=== PATIENT | male | born 1955 | race Two or more races ===

== ENCOUNTER 2024-01-15 21:49 | Inpatient (IN) | payer MEDICARE, OTHER ==
[~2024-01-15] VITALS: Ht 182.9 cm; Wt 103.9 kg
[2024-01-15] MEDS: FENTANYL 2500MCG/250ML PMX 250 ML IV ONE (01:30)
[2024-01-16] VITALS (81 sets, daily range): BP systolic 65–159; BP diastolic 45–81; PULSE 15–130; RESP 14–22; TEMP 37.55856–38.4752; O2SAT 97–100
[2024-01-16 00:51] LABS: HEMATOCRIT. 48.8 % (42.0-52.0); HEMOGLOBIN. 15.6 g/dL (14.0-18.0); MEAN CORPUSCULAR HEMOGLOBIN 29.5 pg (28.0-32.0); MEAN CORPUSCULAR VOLUME 92.2 fL (80.0-94.0); RED CELL DISTRIBUTION WIDTH 15.9 % (11.6-14.6); WHITE BLOOD COUNT 15.2 x1000/uL (4.5-11.0)
[2024-01-16 00:56] LABS: DIFFERENTIAL COMMENT 1
[2024-01-16] MEDS ORDERED: NOREPINEPHRINE 8MG/250ML PMX 250 ML IV ONE (01:00)
[2024-01-16 01:02] LABS: CHLORIDE 108 mEq/L (98-107); POTASSIUM 5.3 mEq/L (3.5-5.1); SODIUM 144 mEq/L (136-145)
[2024-01-16 01:03] LABS: CALCIUM 9.2 mg/dL (8.7-10.4); CARBON DIOXIDE 26 mEq/L (21-32)
[2024-01-16 01:08] LABS: CREATININE 1.2 mg/dL (0.6-1.3); GLUCOSE 119 mg/dL (70-105); UREA NITROGEN BLOOD 26 mg/dL (9-23)
[2024-01-16 01:10] LABS: ALANINE AMINOTRANSFERASE 36 IU/L (10-49); ALBUMIN 4.1 g/dL (3.2-4.8); ASPARTATE AMINOTRANSFERASE 38 IU/L (<34); BILIRUBIN DIRECT 0.3 mg/dL (<=3.0); BILIRUBIN TOTAL 0.9 mg/dL (0.1-1.0); TROPONIN I HIGH SENSITIVITY 8 ng/L (3.0-53)
[2024-01-16] MEDS ORDERED: FENTANYL 2500MCG/250ML PMX 250 ML IV ONE (01:30)
[2024-01-16] MEDS ORDERED: FENTANYL 2500MCG/250ML PMX 250 ML IV PRN (01:30)
[2024-01-16] MEDS ORDERED: AZITHROMYCIN 500MG/250ML 250 ML IV NR (01:45)
[2024-01-16] MEDS ORDERED: VANCOMYCIN 1G PREMIX 200 ML IV NR (01:45)
[2024-01-16] MEDS ORDERED: PIPERACILLIN/TAZO 3.375G/50ML 50 ML IV NR (01:45)
[2024-01-16] MEDS ORDERED: SODIUM CHLORIDE 0.9% (SEPSIS BOLUS) IV NR (01:45)
[2024-01-16 01:50] LABS: INR 1.2; PROTHROMBIN TIME 12.8 sec (9.6-11.0)
[2024-01-16 03:24] LABS: CHLORIDE 109 mEq/L (98-107); SODIUM 143 mEq/L (136-145)
[2024-01-16 03:25] LABS: CALCIUM 8.7 mg/dL (8.7-10.4); CARBON DIOXIDE 26 mEq/L (21-32)
[2024-01-16 03:30] LABS: CREATININE 1.2 mg/dL (0.6-1.3); GLUCOSE 113 mg/dL (70-105); UREA NITROGEN BLOOD 29 mg/dL (9-23)
[2024-01-16 03:36] LABS: CLARITY URINE CLEAR (CLEAR); COLOR URINE DARK YELLOW (YELLOW); GLUCOSE URINE NEGATIVE (NEGATIVE); KETONES URINE TRACE (NEGATIVE); LEUKOCYTE ESTERASE URINE NEGATIVE (NEGATIVE); NITRITE URINE NEGATIVE (NEGATIVE); OCCULT BLOOD URINE NEGATIVE (NEGATIVE); PROTEIN URINE 1+ (NEGATIVE); SPECIFIC GRAVITY URINE 1.024 (1.005-1.030)
[2024-01-16] MEDS ORDERED: CLONIDINE 0.1MG TABLET NG PRN (04:00)
[2024-01-16] MEDS ORDERED: ONDANSETRON HCL 4MG/2ML INJ IV PRN (04:00)
[2024-01-16] MEDS: ACETAMINOPHEN 650MG/20.3ML UDC GT PRN (04:35)
[2024-01-16] MEDS ORDERED: NOREPINEPHRINE 8MG/250ML PMX 250 ML IV PRN (04:50)
[2024-01-16 05:45] LABS: RBC URINE 0-2 /hpf (0-2)
[2024-01-16 05:46] LABS: BACTERIA URINE NONE SEEN; SQUAMOUS EPITHELIAL CELL URINE NONE SEEN /lpf (RARE/1+)
[2024-01-16] MEDS: NOREPINEPHRINE 32 MG in DEXT 5% WATER 218 ML IV PRN (06:56)
[2024-01-16] MEDS: DEXT 5%/0.45% NACL 1000ML 1,000 ML IV SCH (06:57)
[2024-01-16] MEDS: IPRATROPIUM/ALBUTEROL 0.5-3(2.5)MG/3ML NEB HHN SCH (08:24)
[2024-01-16 08:35] LABS: PLATELET ESTIMATE NORMAL
[2024-01-16 08:36] LABS: PLATELET 178 x1000/uL (130-400)
[2024-01-16 08:55] LABS: BG BASE EXCESS -3.3 mmol/L (-2.0-3.0); BG CARBOXYHEMOGLOBIN 0.3 % (0.5-1.5); BG DEOXYHEMOGLOBIN 2.8 % (0.0-5.0); BG FRACTION INSPIRED OXYGEN 100; BG HCO3 ACT 23.1 mmol/L (21.0-28.0); BG METHEMOGLOBIN 0.1 % (0.5-1.5); BG OXYGEN SATURATION 97.2 % (94.0-98.0); BG OXYHEMOGLOBIN 96.8 % (94.0-98.0); BG PCO2 46.3 mmHg (35.0-48.0); BG PH 7.316 (7.350-7.450); BG PO2 84.6 mmHg (83.0-108.0); BG SAMPLE SITE RIGHT RADIAL; BG TOTAL HEMOGLOBIN 16.6 g/dL (13.5-17.5); BG VENT MODE VENT - AC
[2024-01-16] MEDS: LEVETIRACETAM 500MG PREMIX 100 ML IV SCH (08:58)
[2024-01-16] MEDS: FAMOTIDINE 20MG/2ML VIAL IV SCH (08:58)
[2024-01-16] MEDS ORDERED: LEVETIRACETAM 500MG in NACL 100ML PREMIX IV SCH (09:00)
[2024-01-16] MEDS ORDERED: PHENYLEPHRINE 50MG/250ML PMX 250 ML IV PRN (11:30)
[2024-01-16] MEDS ORDERED: PROPOFOL 10MG/ML 100ML 100 ML IV PRN (12:00)
[2024-01-16] MEDS ORDERED: DEXTROSE 50% WATER 50ML SYRINGE IV PRN (12:15)
[2024-01-16] MEDS: PANTOPRAZOLE SODIUM 40 MG/VIAL IV SCH (12:24)
[2024-01-16] MEDS: SODIUM ZIRCONIUM CYCLOSILICATE 10GM/PACKET NG NR (12:24)
[2024-01-16] MEDS: FENTANYL CITRATE/PF 2,500 MCG in SODIUM CHLORIDE 0.9% 200 ML IV PRN (12:25)
[2024-01-16] MEDS: BLOOD SUGAR DIAGNOSTIC STRIP TEST SCH (12:50)
[2024-01-16] MEDS: INSULIN LISPRO 100 UNITS/ML SUBCUT SCH (13:20)
[2024-01-16 13:53] LABS: POTASSIUM 4.3 mEq/L (3.5-5.1)
[2024-01-16 13:54] LABS: CALCIUM 8.5 mg/dL (8.7-10.4)
[2024-01-16 13:59] LABS: CREATININE 1.3 mg/dL (0.6-1.3); HEMATOCRIT. 48.9 % (42.0-52.0); HEMOGLOBIN. 15.4 g/dL (14.0-18.0); MEAN CORPUSCULAR HEMOGLOBIN 29.6 pg (28.0-32.0); MEAN CORPUSCULAR HGB CONC 31.5 g/dL (31.0-37.0); MEAN CORPUSCULAR VOLUME 94.2 fL (80.0-94.0); MEAN PLATELET VOLUME 10.2 fl (7.4-10.4); PLATELET 196 x1000/uL (130-400); RED BLOOD CELL COUNT 5.18 mill/uL (4.7-6.1); WHITE BLOOD COUNT 14.8 x1000/uL (4.5-11.0)
[2024-01-16 14:05] LABS: DIFFERENTIAL COMMENT 1
[2024-01-16 14:08] LABS: LACTIC ACID 5.7 mmol/L (0.4-2.0)
[2024-01-16] MEDS: ACETYLCYSTEINE 200MG/ML 20% VIAL 4ML INH SCH (14:18)
[2024-01-16] MEDS: PHENYLEPHRINE 50 MG in DEXTROSE 5% WATER 250 ML IV PRN (14:25)
[2024-01-16] MEDS: AZITHROMYCIN 500MG/250ML 250 ML IV SCH (14:26)
[2024-01-16] MEDS: HYDROCORTISONE SOD SUCCINATE 100 MG/2 ML VIAL IV SCH (14:26)
[2024-01-16 15:28] LABS: PLATELET ESTIMATE NORMAL
[2024-01-16] MEDS: CEFEPIME 1GM/50ML 50 ML IV SCH (15:41)
[2024-01-16] MEDS: METRONIDAZOLE 500 MG PREMIX 100 ML IV SCH (15:42)
[2024-01-16] MEDS: PHENYLEPHRINE 100 MG in DEXT 5% WATER 240 ML IV PRN (21:28)
[2024-01-17] VITALS (104 sets, daily range): BP systolic 86–148; BP diastolic 45–121; PULSE 56–88; RESP 16–19; TEMP 37.00296–37.66968; O2SAT 88–100
[2024-01-17] MEDS: ENOXAPARIN 40MG/0.4ML SYR SUBCUT SCH (08:14)
[2024-01-17 08:59] LABS: CALCIUM 8.1 mg/dL (8.7-10.4); CARBON DIOXIDE 29 mEq/L (21-32); CHLORIDE 107 mEq/L (98-107); POTASSIUM 4.1 mEq/L (3.5-5.1); SODIUM 142 mEq/L (136-145)
[2024-01-17 09:04] LABS: CREATININE 0.9 mg/dL (0.6-1.3); GLUCOSE 117 mg/dL (70-105)
[2024-01-17 09:05] LABS: UREA NITROGEN BLOOD 28 mg/dL (9-23)
[2024-01-17 09:08] LABS: HEMATOCRIT. 44.1 % (42.0-52.0); HEMOGLOBIN. 14.1 g/dL (14.0-18.0); MEAN CORPUSCULAR HEMOGLOBIN 29.6 pg (28.0-32.0); MEAN CORPUSCULAR VOLUME 92.5 fL (80.0-94.0); MEAN PLATELET VOLUME 10.6 fl (7.4-10.4); PLATELET 197 x1000/uL (130-400); RED BLOOD CELL COUNT 4.76 mill/uL (4.7-6.1); RED CELL DISTRIBUTION WIDTH 16.8 % (11.6-14.6); WHITE BLOOD COUNT 12.6 x1000/uL (4.5-11.0)
[2024-01-17 09:38] LABS: DIFFERENTIAL COMMENT 1
[2024-01-17 09:59] LABS: BG BASE EXCESS 0.6 mmol/L (-2.0-3.0); BG CARBOXYHEMOGLOBIN 0.9 % (0.5-1.5); BG DEOXYHEMOGLOBIN 2.9 % (0.0-5.0); BG FRACTION INSPIRED OXYGEN 90; BG HCO3 ACT 26.8 mmol/L (21.0-28.0); BG OXYGEN SATURATION 97.1 % (94.0-98.0); BG OXYHEMOGLOBIN 96.2 % (94.0-98.0); BG PCO2 48.6 mmHg (35.0-48.0); BG PH 7.359 (7.350-7.450); BG PO2 80.6 mmHg (83.0-108.0); BG SAMPLE SITE LEFT RADIAL; BG TOTAL HEMOGLOBIN 14.7 g/dL (13.5-17.5); BG TOTAL RESPIRATORY RATE 16 b/min; BG VENT MODE VENT - AC
[2024-01-17] MEDS: PIPERACILLIN/TAZO 3.375G/50ML 50 ML IV SCH (12:05)
[2024-01-17] MEDS ORDERED: CEFEPIME 2GM/100ML 100 ML IV SCH (13:00)
[2024-01-17] MEDS: SODIUM CHLORIDE 3% FOR INH 4ML NEB INH SCH (14:32)
[2024-01-17] MEDS: VANCOMYCIN 1.5GM/250ML 250 ML IV SCH (15:40)
[2024-01-17 16:44] LABS: ANISOCYTOSIS 1+; PLATELET ESTIMATE NORMAL
[2024-01-17] MEDS ORDERED: PANTOPRAZOLE SODIUM 40 MG/VIAL IV SCH (21:00)
[2024-01-17] MEDS: VANCOMYCIN 750MG PREMIX 150 ML IV SCH (22:40)
[2024-01-18] VITALS (99 sets, daily range): BP systolic 80–174; BP diastolic 46–111; PULSE 46–83; RESP 12–25; TEMP 36.61404–37.2252; O2SAT 81–100
[2024-01-18 05:25] LABS: HEMATOCRIT 39.4 % (42.0-52.0); HEMOGLOBIN 13.1 g/dL (14.0-18.0); MEAN CORPUSCULAR HEMOGLOBIN 30.3 pg (28.0-32.0); MEAN CORPUSCULAR HGB CONC 33.3 g/dL (31.0-37.0); RED BLOOD CELL COUNT 4.33 mill/uL (4.7-6.1); RED CELL DISTRIBUTION WIDTH 15.3 % (11.6-14.6); WHITE BLOOD COUNT 13.9 x1000/uL (4.5-11.0)
[2024-01-18 05:26] LABS: CARBON DIOXIDE 27 mEq/L (21-32); CHLORIDE 108 mEq/L (98-107); POTASSIUM 4.1 mEq/L (3.5-5.1); SODIUM 142 mEq/L (136-145)
[2024-01-18 05:27] LABS: CALCIUM 7.9 mg/dL (8.7-10.4)
[2024-01-18 05:32] LABS: CREATININE 0.7 mg/dL (0.6-1.3); GLUCOSE 148 mg/dL (70-105); UREA NITROGEN BLOOD 16 mg/dL (9-23)
[2024-01-18 09:23] LABS: BG BASE EXCESS 1.4 mmol/L (-2.0-3.0); BG CARBOXYHEMOGLOBIN 0.8 % (0.5-1.5); BG DEOXYHEMOGLOBIN 4.1 % (0.0-5.0); BG FRACTION INSPIRED OXYGEN 70; BG HCO3 ACT 27.2 mmol/L (21.0-28.0); BG METHEMOGLOBIN 0.3 % (0.5-1.5); BG OXYGEN SATURATION 95.9 % (94.0-98.0); BG OXYHEMOGLOBIN 94.8 % (94.0-98.0); BG PCO2 47.2 mmHg (35.0-48.0); BG PH 7.379 (7.350-7.450); BG PO2 71.6 mmHg (83.0-108.0); BG SAMPLE SITE RIGHT RADIAL; BG TOTAL HEMOGLOBIN 15.1 g/dL (13.5-17.5); BG VENT MODE VENT - AC
[2024-01-18] MEDS: PANTOPRAZOLE SODIUM 40 MG/VIAL IV SCH (10:20)
[2024-01-18] MEDS: INSULIN LISPRO 100 UNITS/ML SUBCUT SCH (12:00)
[2024-01-18] MEDS ORDERED: MIDODRINE HCL 5MG TABLET PO SCH (12:00)
[2024-01-18] MEDS: BLOOD SUGAR DIAGNOSTIC STRIP TEST SCH (12:56)
[2024-01-18] MEDS: MIDODRINE HCL 5MG TABLET NG SCH (17:14)
[2024-01-18] MEDS: DOPAMINE 400MG/250ML PREMIX 250 ML IV PRN (21:45)
[2024-01-19] VITALS (104 sets, daily range): BP systolic 79–169; BP diastolic 50–116; PULSE 45–90; RESP 13–23; TEMP 36.72516–37.28076; O2SAT 92–100
[2024-01-19 06:26] LABS: HEMOGLOBIN. 14.4 g/dL (14.0-18.0); MEAN CORPUSCULAR HEMOGLOBIN 30.1 pg (28.0-32.0); MEAN CORPUSCULAR HGB CONC 32.7 g/dL (31.0-37.0); MEAN CORPUSCULAR VOLUME 92.1 fL (80.0-94.0); RED BLOOD CELL COUNT 4.77 mill/uL (4.7-6.1); RED CELL DISTRIBUTION WIDTH 15.4 % (11.6-14.6); WHITE BLOOD COUNT 9.5 x1000/uL (4.5-11.0)
[2024-01-19 06:37] LABS: CARBON DIOXIDE 28 mEq/L (21-32); CHLORIDE 107 mEq/L (98-107); POTASSIUM 3.6 mEq/L (3.5-5.1); SODIUM 143 mEq/L (136-145)
[2024-01-19 06:39] LABS: CALCIUM 8.2 mg/dL (8.7-10.4)
[2024-01-19 06:41] LABS: TROPONIN I HIGH SENSITIVITY 31 ng/L (3.0-53)
[2024-01-19 06:43] LABS: CREATININE 0.6 mg/dL (0.6-1.3); GLUCOSE 122 mg/dL (70-105)
[2024-01-19 06:44] LABS: UREA NITROGEN BLOOD 10 mg/dL (9-23)
[2024-01-19 06:45] LABS: THYROID STIMULATING HORMONE 0.13 uIU/mL (0.55-4.78)
[2024-01-19 07:15] LABS: DIFFERENTIAL COMMENT 1
[2024-01-19 08:53] LABS: PLATELET 78 x1000/uL (130-400)
[2024-01-19 09:57] LABS: BG BASE EXCESS 2.2 mmol/L (-2.0-3.0); BG CARBOXYHEMOGLOBIN 0.3 % (0.5-1.5); BG DEOXYHEMOGLOBIN 4.7 % (0.0-5.0); BG FRACTION INSPIRED OXYGEN 80; BG METHEMOGLOBIN 0.3 % (0.5-1.5); BG OXYGEN SATURATION 95.3 % (94.0-98.0); BG OXYHEMOGLOBIN 94.7 % (94.0-98.0); BG PCO2 42.8 mmHg (35.0-48.0); BG PH 7.418 (7.350-7.450); BG PO2 65.2 mmHg (83.0-108.0); BG SAMPLE SITE RIGHT RADIAL; BG TOTAL HEMOGLOBIN 14.5 g/dL (13.5-17.5); BG VENT MODE VENT - AC
[2024-01-19] MEDS: PROPOFOL 10MG/ML 100ML 100 ML IV PRN (10:44)
[2024-01-19] MEDS: THEOPHYLLINE ANHYDROUS 80 MG/15 ML 120ML GT SCH (13:28)
[2024-01-19] MEDS: LEVOFLOXACIN 500MG TABLET PO SCH (17:34)
[2024-01-20] VITALS (108 sets, daily range): BP systolic 92–176; BP diastolic 54–149; PULSE 44–84; RESP 12–19; TEMP 36.72516–37.05852; O2SAT 92–98
[2024-01-20 06:47] LABS: DIFFERENTIAL COMMENT 0; HEMATOCRIT. 40.3 % (42.0-52.0); HEMOGLOBIN. 13.5 g/dL (14.0-18.0); LYMPHOCYTES % 9.5 % (20.0-50.0); MEAN CORPUSCULAR HGB CONC 33.4 g/dL (31.0-37.0); MEAN CORPUSCULAR VOLUME 89.7 fL (80.0-94.0); MEAN PLATELET VOLUME 9.2 fl (7.4-10.4); MONOCYTES % 12.2 % (2.0-8.0); NEUTROPHILS % 78.3 % (40.0-76.0); PLATELET 139 x1000/uL (130-400); RED CELL DISTRIBUTION WIDTH 14.2 % (11.6-14.6); WHITE BLOOD COUNT 6.3 x1000/uL (4.5-11.0)
[2024-01-20 08:53] LABS: PLATELET ESTIMATE SLIGHTLY DECREASED
[2024-01-20] MEDS: AMLODIPINE 2.5MG TABLET GT SCH (08:55)
[2024-01-20 09:20] LABS: BG CARBOXYHEMOGLOBIN 0.6 % (0.5-1.5); BG FRACTION INSPIRED OXYGEN 80; BG HCO3 ACT 30.2 mmol/L (21.0-28.0); BG METHEMOGLOBIN 0.3 % (0.5-1.5); BG OXYHEMOGLOBIN 96.1 % (94.0-98.0); BG PCO2 46.5 mmHg (35.0-48.0); BG PH 7.431 (7.350-7.450); BG PO2 80.3 mmHg (83.0-108.0); BG SAMPLE SITE RIGHT RADIAL; BG VENT MODE VENT - AC
[2024-01-20 10:15] LABS: CHLORIDE 106 mEq/L (98-107); SODIUM 144 mEq/L (136-145)
[2024-01-20 10:16] LABS: CALCIUM 8.3 mg/dL (8.7-10.4); CARBON DIOXIDE 32 mEq/L (21-32)
[2024-01-20 10:21] LABS: CREATININE 0.5 mg/dL (0.6-1.3); GLUCOSE 129 mg/dL (70-105); TRIGLYCERIDE 106 mg/dL (0-150); UREA NITROGEN BLOOD 8 mg/dL (9-23)
[2024-01-20 10:29] LABS: POTASSIUM 2.6 mEq/L (3.5-5.1)
[2024-01-20] MEDS ORDERED: KCL 20MEQ/100ML PREMIX 100 ML IV SCH ×2 (11:30→21:00)
[2024-01-20] MEDS: POTASSIUM CHLORIDE 40MEQ in DEXT 5% WATER 250ML IV SCH (12:06)
[2024-01-20] MEDS: MAGNESIUM OXIDE 400MG TABLET NG SCH (12:28)
[2024-01-20] MEDS: MIDAZOLAM 100MG/100ML PMX 100 ML IV PRN (17:07)
[2024-01-20] MEDS: POTASSIUM CHLORIDE 40 MEQ in DEXT 5% WATER 230 ML IV SCH (21:13)
[2024-01-21] VITALS (106 sets, daily range): BP systolic 60–175; BP diastolic 48–89; PULSE 47–83; RESP 14–24; TEMP 36.28068–37.16964; O2SAT 94–100
[2024-01-21 05:56] LABS: CHLORIDE 106 mEq/L (98-107); POTASSIUM 3.1 mEq/L (3.5-5.1); SODIUM 144 mEq/L (136-145)
[2024-01-21 05:57] LABS: CALCIUM 8.5 mg/dL (8.7-10.4); CARBON DIOXIDE 31 mEq/L (21-32)
[2024-01-21 06:02] LABS: CREATININE 0.5 mg/dL (0.6-1.3); GLUCOSE 140 mg/dL (70-105); UREA NITROGEN BLOOD 7 mg/dL (9-23)
[2024-01-21 06:29] LABS: HEMATOCRIT. 43.6 % (42.0-52.0); HEMOGLOBIN. 14.6 g/dL (14.0-18.0); MEAN CORPUSCULAR HEMOGLOBIN 29.9 pg (28.0-32.0); MEAN CORPUSCULAR HGB CONC 33.5 g/dL (31.0-37.0); MEAN CORPUSCULAR VOLUME 89.1 fL (80.0-94.0); MEAN PLATELET VOLUME 9.5 fl (7.4-10.4); PLATELET 150 x1000/uL (130-400); RED BLOOD CELL COUNT 4.89 mill/uL (4.7-6.1); RED CELL DISTRIBUTION WIDTH 14.5 % (11.6-14.6); WHITE BLOOD COUNT 6.3 x1000/uL (4.5-11.0)
[2024-01-21 06:33] LABS: DIFFERENTIAL COMMENT 1
[2024-01-21 07:18] LABS: BG BASE EXCESS 7.7 mmol/L (-2.0-3.0); BG CARBOXYHEMOGLOBIN 0.3 % (0.5-1.5); BG DEOXYHEMOGLOBIN 4.2 % (0.0-5.0); BG HCO3 ACT 31.8 mmol/L (21.0-28.0); BG METHEMOGLOBIN 0.3 % (0.5-1.5); BG OXYGEN SATURATION 95.8 % (94.0-98.0); BG OXYHEMOGLOBIN 95.2 % (94.0-98.0); BG PCO2 42.4 mmHg (35.0-48.0); BG PH 7.493 (7.350-7.450); BG PO2 68.8 mmHg (83.0-108.0); BG SAMPLE SITE RIGHT RADIAL; BG TOTAL HEMOGLOBIN 15.5 g/dL (13.5-17.5); BG VENT MODE VENT - AC
[2024-01-21] MEDS: POTASSIUM CHLORIDE 20MEQ/PACKET PO NR ×2 (09:28→23:25)
[2024-01-21 09:47] LABS: BG BASE EXCESS 6.8 mmol/L (-2.0-3.0); BG CARBOXYHEMOGLOBIN 0.4 % (0.5-1.5); BG DEOXYHEMOGLOBIN 2.9 % (0.0-5.0); BG FRACTION INSPIRED OXYGEN 80; BG HCO3 ACT 30.4 mmol/L (21.0-28.0); BG METHEMOGLOBIN 0.3 % (0.5-1.5); BG OXYGEN SATURATION 97.1 % (94.0-98.0); BG OXYHEMOGLOBIN 96.4 % (94.0-98.0); BG PCO2 39.6 mmHg (35.0-48.0); BG PH 7.503 (7.350-7.450); BG PO2 78.9 mmHg (83.0-108.0); BG SAMPLE SITE RIGHT RADIAL; BG TOTAL HEMOGLOBIN 15.5 g/dL (13.5-17.5); BG VENT MODE VENT - PRVC
[2024-01-21 09:59] LABS: PLATELET ESTIMATE NORMAL
[2024-01-21] MEDS: LEVOFLOXACIN 500MG TABLET PO SCH (12:42)
[2024-01-21] MEDS: IPRATROPIUM/ALBUTEROL 0.5-3(2.5)MG/3ML NEB HHN PRN (13:46)
[2024-01-21] MEDS: THEOPHYLLINE ANHYDROUS 80 MG/15 ML 120ML GT SCH (17:00)
[2024-01-21] MEDS ORDERED: FENTANYL 2500MCG/250ML PMX 250 ML IV ONE (20:00)
[2024-01-21] MEDS: HYDROCORTISONE SOD SUCCINATE 100 MG/2 ML VIAL IV SCH (20:49)
[2024-01-21] MEDS: LEVETIRACETAM 1000MG PREMIX 100 ML IV SCH (20:49)
[2024-01-21] MEDS ORDERED: LEVETIRACETAM 1,000MG in NACL 100ML PREMIX IV SCH (21:00)
[2024-01-21] MEDS: FENTANYL CITRATE 2,500 MCG in SODIUM CHLORIDE 0.9% 200 ML IV PRN (23:28)
[2024-01-22] VITALS (107 sets, daily range): BP systolic 59–201; BP diastolic 36–104; PULSE 50–114; RESP 11–19; TEMP 36.44736–37.11408; O2SAT 94–99
[2024-01-22] MEDS: POTASSIUM CHLORIDE 20MEQ/PACKET PO NR (01:24)
[2024-01-22 06:47] LABS: CHLORIDE 110 mEq/L (98-107); POTASSIUM 3.8 mEq/L (3.5-5.1); SODIUM 144 mEq/L (136-145)
[2024-01-22 06:48] LABS: CARBON DIOXIDE 29 mEq/L (21-32)
[2024-01-22 06:49] LABS: CALCIUM 8.4 mg/dL (8.7-10.4)
[2024-01-22 06:53] LABS: CREATININE 0.5 mg/dL (0.6-1.3); GLUCOSE 152 mg/dL (70-105); UREA NITROGEN BLOOD 9 mg/dL (9-23)
[2024-01-22 07:08] LABS: HEMATOCRIT. 48.8 % (42.0-52.0); HEMOGLOBIN. 16.5 g/dL (14.0-18.0); MEAN CORPUSCULAR HEMOGLOBIN 30.2 pg (28.0-32.0); MEAN CORPUSCULAR HGB CONC 33.9 g/dL (31.0-37.0); MEAN CORPUSCULAR VOLUME 89.1 fL (80.0-94.0); MEAN PLATELET VOLUME 9.2 fl (7.4-10.4); PLATELET 190 x1000/uL (130-400); RED BLOOD CELL COUNT 5.48 mill/uL (4.7-6.1); RED CELL DISTRIBUTION WIDTH 14.8 % (11.6-14.6); WHITE BLOOD COUNT 10.7 x1000/uL (4.5-11.0)
[2024-01-22 07:11] LABS: DIFFERENTIAL COMMENT 1
[2024-01-22] MEDS: HYDROCORTISONE SOD SUCCINATE 100 MG/2 ML VIAL IV SCH (08:40)
[2024-01-22] MEDS: PANTOPRAZOLE SODIUM 40 MG/VIAL IV SCH (08:40)
[2024-01-22 08:44] LABS: BG BASE EXCESS 5.3 mmol/L (-2.0-3.0); BG DEOXYHEMOGLOBIN 0.7 % (0.0-5.0); BG FRACTION INSPIRED OXYGEN 80; BG HCO3 ACT 27.9 mmol/L (21.0-28.0); BG METHEMOGLOBIN 0.1 % (0.5-1.5); BG OXYGEN SATURATION 99.3 % (94.0-98.0); BG OXYHEMOGLOBIN 99.2 % (94.0-98.0); BG PCO2 34.9 mmHg (35.0-48.0); BG PO2 146.8 mmHg (83.0-108.0); BG SAMPLE SITE RIGHT RADIAL; BG TOTAL HEMOGLOBIN 16.8 g/dL (13.5-17.5); BG TOTAL RESPIRATORY RATE 18 b/min; BG VENT MODE VENT-PRVC
[2024-01-22 09:04] LABS: PLATELET ESTIMATE NORMAL
[2024-01-22] MEDS: LISINOPRIL 2.5MG TABLET PO SCH (12:04)
[2024-01-23] VITALS (111 sets, daily range): BP systolic 46–205; BP diastolic 24–90; PULSE 67–121; RESP 14–24; TEMP 36.61404–37.39188; O2SAT 88–99
[2024-01-23 07:31] LABS: BASOPHILS % 0.1 % (0.0-2.0); DIFFERENTIAL COMMENT 0; EOSINOPHILS % 1.4 % (0.0-5.0); HEMATOCRIT. 49.6 % (42.0-52.0); HEMOGLOBIN. 16.2 g/dL (14.0-18.0); LYMPHOCYTES % 11.4 % (20.0-50.0); MEAN CORPUSCULAR HEMOGLOBIN 29.4 pg (28.0-32.0); MEAN CORPUSCULAR HGB CONC 32.6 g/dL (31.0-37.0); MEAN CORPUSCULAR VOLUME 90.2 fL (80.0-94.0); MEAN PLATELET VOLUME 9.6 fl (7.4-10.4); MONOCYTES % 4.7 % (2.0-8.0); NEUTROPHILS % 82.4 % (40.0-76.0); PLATELET 272 x1000/uL (130-400); RED CELL DISTRIBUTION WIDTH 15.1 % (11.6-14.6); WHITE BLOOD COUNT 16.1 x1000/uL (4.5-11.0)
[2024-01-23 07:35] LABS: INR 1.1; PROTHROMBIN TIME 12.2 sec (9.6-11.0)
[2024-01-23 07:41] LABS: CHLORIDE 106 mEq/L (98-107); SODIUM 141 mEq/L (136-145)
[2024-01-23 07:42] LABS: CARBON DIOXIDE 26 mEq/L (21-32)
[2024-01-23 07:43] LABS: CALCIUM 8.2 mg/dL (8.7-10.4)
[2024-01-23 07:48] LABS: CREATININE 0.7 mg/dL (0.6-1.3); GLUCOSE 127 mg/dL (70-105); UREA NITROGEN BLOOD 12 mg/dL (9-23)
[2024-01-23 07:49] LABS: ALANINE AMINOTRANSFERASE 312 IU/L (10-49)
[2024-01-23 07:50] LABS: ASPARTATE AMINOTRANSFERASE 194 IU/L (<34); BILIRUBIN TOTAL 0.9 mg/dL (0.1-1.0); PHOSPHORUS 2.1 mg/dL (2.5-4.9); PROTEIN TOTAL 6.2 g/dL (6.0-8.3)
[2024-01-23 08:40] LABS: POTASSIUM 2.8 mEq/L (3.5-5.1)
[2024-01-23 08:53] LABS: BG BASE EXCESS 2.9 mmol/L (-2.0-3.0); BG CARBOXYHEMOGLOBIN 0.3 % (0.5-1.5); BG DEOXYHEMOGLOBIN 3.3 % (0.0-5.0); BG FRACTION INSPIRED OXYGEN 60; BG METHEMOGLOBIN 0.2 % (0.5-1.5); BG OXYGEN SATURATION 96.7 % (94.0-98.0); BG OXYHEMOGLOBIN 96.2 % (94.0-98.0); BG PCO2 39.7 mmHg (35.0-48.0); BG PH 7.451 (7.350-7.450); BG PO2 75.9 mmHg (83.0-108.0); BG SAMPLE SITE RIGHT RADIAL; BG VENT MODE VENT - PRVC
[2024-01-23] MEDS: NOREPINEPHRINE 32 MG in DEXT 5% WATER 218 ML IV PRN (09:00)
[2024-01-23] MEDS: POTASSIUM CHLORIDE 20MEQ/PACKET PO NR ×2 (09:06→12:11)
[2024-01-23 22:05] LABS: POTASSIUM 4.4 mEq/L (3.5-5.1)
[2024-01-24] VITALS (104 sets, daily range): BP systolic 72–167; BP diastolic 50–99; PULSE 54–97; RESP 15–23; TEMP 36.72516–37.11408; O2SAT 90–99
[2024-01-24 09:52] LABS: BASOPHILS % 0.2 % (0.0-2.0); HEMATOCRIT. 44.8 % (42.0-52.0); HEMOGLOBIN. 14.7 g/dL (14.0-18.0); LYMPHOCYTES % 13.9 % (20.0-50.0); MEAN CORPUSCULAR HEMOGLOBIN 29.4 pg (28.0-32.0); MEAN CORPUSCULAR HGB CONC 32.8 g/dL (31.0-37.0); MEAN CORPUSCULAR VOLUME 89.8 fL (80.0-94.0); MEAN PLATELET VOLUME 9.2 fl (7.4-10.4); MONOCYTES % 4.1 % (2.0-8.0); NEUTROPHILS % 78.8 % (40.0-76.0); PLATELET 205 x1000/uL (130-400); RED BLOOD CELL COUNT 4.99 mill/uL (4.7-6.1); RED CELL DISTRIBUTION WIDTH 15.3 % (11.6-14.6); WHITE BLOOD COUNT 12.7 x1000/uL (4.5-11.0)
[2024-01-24 10:05] LABS: CARBON DIOXIDE 28 mEq/L (21-32); CHLORIDE 104 mEq/L (98-107); POTASSIUM 3.3 mEq/L (3.5-5.1); SODIUM 138 mEq/L (136-145)
[2024-01-24 10:10] LABS: CREATININE 0.6 mg/dL (0.6-1.3); GLUCOSE 119 mg/dL (70-105)
[2024-01-24 10:11] LABS: UREA NITROGEN BLOOD 8 mg/dL (9-23)
[2024-01-24 13:51] LABS: BG BASE EXCESS 0.4 mmol/L (-2.0-3.0); BG CARBOXYHEMOGLOBIN 0.5 % (0.5-1.5); BG FRACTION INSPIRED OXYGEN 40; BG HCO3 ACT 23.6 mmol/L (21.0-28.0); BG OXYHEMOGLOBIN 95.5 % (94.0-98.0); BG PCO2 34.3 mmHg (35.0-48.0); BG PH 7.455 (7.350-7.450); BG PO2 71.7 mmHg (83.0-108.0); BG SAMPLE SITE RIGHT RADIAL; BG TOTAL HEMOGLOBIN 17.4 g/dL (13.5-17.5); BG VENT MODE VENT - CPAP
[2024-01-24] MEDS ORDERED: CLON0.5T4 MT (23:28)
[2024-01-24] MEDS ORDERED: DEPSPR MT (23:28)
[2024-01-24] MEDS ORDERED: DOCU-138 PO (23:28)
[2024-01-24] MEDS ORDERED: KEPP500 PO (23:28)
[2024-01-24] MEDS ORDERED: MIDO5TAB4 PO (23:28)
[2024-01-24] MEDS ORDERED: OLAN5TAB3 PO (23:28)
[2024-01-24] MEDS ORDERED: CHOL400D7 PO (23:28)
[2024-01-25] VITALS (96 sets, daily range): BP systolic 83–149; BP diastolic 55–87; PULSE 53–123; RESP 16–28; TEMP 36.50292–37.94748; O2SAT 85–99
[2024-01-25 06:32] LABS: CALCIUM 8.2 mg/dL (8.7-10.4); CHLORIDE 104 mEq/L (98-107); POTASSIUM 4.4 mEq/L (3.5-5.1); SODIUM 136 mEq/L (136-145)
[2024-01-25 06:33] LABS: CARBON DIOXIDE 26 mEq/L (21-32)
[2024-01-25 06:38] LABS: CREATININE 0.7 mg/dL (0.6-1.3); GLUCOSE 108 mg/dL (70-105)
[2024-01-25 06:56] LABS: BASOPHILS % 0.2 % (0.0-2.0); EOSINOPHILS % 2.3 % (0.0-5.0); HEMATOCRIT. 46.1 % (42.0-52.0); HEMOGLOBIN. 14.8 g/dL (14.0-18.0); LYMPHOCYTES % 9.4 % (20.0-50.0); MEAN CORPUSCULAR HEMOGLOBIN 29.3 pg (28.0-32.0); MEAN CORPUSCULAR VOLUME 91.4 fL (80.0-94.0); MEAN PLATELET VOLUME 9.2 fl (7.4-10.4); MONOCYTES % 5.2 % (2.0-8.0); NEUTROPHILS % 82.9 % (40.0-76.0); PLATELET 176 x1000/uL (130-400); RED BLOOD CELL COUNT 5.04 mill/uL (4.7-6.1); RED CELL DISTRIBUTION WIDTH 16.3 % (11.6-14.6); WHITE BLOOD COUNT 14.9 x1000/uL (4.5-11.0)
[2024-01-25 08:22] LABS: BG BASE EXCESS 0.4 mmol/L (-2.0-3.0); BG CARBOXYHEMOGLOBIN 0.6 % (0.5-1.5); BG DEOXYHEMOGLOBIN 1.6 % (0.0-5.0); BG FRACTION INSPIRED OXYGEN 50; BG HCO3 ACT 22.3 mmol/L (21.0-28.0); BG METHEMOGLOBIN 0.1 % (0.5-1.5); BG OXYGEN SATURATION 98.4 % (94.0-98.0); BG OXYHEMOGLOBIN 97.7 % (94.0-98.0); BG PCO2 28.9 mmHg (35.0-48.0); BG PH 7.505 (7.350-7.450); BG PO2 98.7 mmHg (83.0-108.0); BG SAMPLE SITE RIGHT RADIAL; BG VENT MODE VENT - SIMV/VC
[2024-01-25] MEDS: HYDROCORTISONE SOD SUCCINATE 100 MG/2 ML VIAL IV SCH (08:44)
[2024-01-25 08:49] LABS: UREA NITROGEN BLOOD 7 mg/dL (9-23)
[2024-01-25 12:52] LABS: BG BASE EXCESS 2.9 mmol/L (-2.0-3.0); BG CARBOXYHEMOGLOBIN 0.8 % (0.5-1.5); BG DEOXYHEMOGLOBIN 1.1 % (0.0-5.0); BG FRACTION INSPIRED OXYGEN 40; BG HCO3 ACT 25.9 mmol/L (21.0-28.0); BG METHEMOGLOBIN 0.1 % (0.5-1.5); BG OXYGEN SATURATION 98.9 % (94.0-98.0); BG PH 7.487 (7.350-7.450); BG SAMPLE SITE RIGHT RADIAL; BG TOTAL HEMOGLOBIN 15.1 g/dL (13.5-17.5); BG VENT MODE VENT - CPAP
[2024-01-25] MEDS ORDERED: OLANZAPINE 2.5MG TABLET NG SCH (15:30)
[2024-01-25] MEDS ORDERED: DIVALPROEX SODIUM 125MG SPRINKLE CAPSULE NG SCH (15:30)
[2024-01-25] MEDS: THEOPHYLLINE ANHYDROUS 80 MG/15 ML 120ML NG SCH (17:48)
[2024-01-25] MEDS: LEVETIRACETAM 500MG/5ML CUP NG SCH (21:04)
[2024-01-25] MEDS: OLANZAPINE 2.5MG TABLET NG SCH (21:05)
[2024-01-25] MEDS: DIVALPROEX SODIUM 125MG SPRINKLE CAPSULE NG SCH (21:05)
[2024-01-25] MEDS: ACETAMINOPHEN 650MG/20.3ML UDC GT PRN (22:06)
[2024-01-25] MEDS: CLONAZEPAM 0.5MG TABLET NG SCH (22:06)
[2024-01-25] MEDS: IOHEXOL-350 100 ML BOTTLE ONE (22:06)
[2024-01-26] VITALS (94 sets, daily range): BP systolic 86–157; BP diastolic 48–90; PULSE 59–97; RESP 14–30; TEMP 36.89184–37.11408; O2SAT 88–98
[2024-01-26 06:40] LABS: CHLORIDE 104 mEq/L (98-107); POTASSIUM 3.4 mEq/L (3.5-5.1); SODIUM 139 mEq/L (136-145)
[2024-01-26 06:41] LABS: CARBON DIOXIDE 29 mEq/L (21-32)
[2024-01-26 06:42] LABS: CALCIUM 8.1 mg/dL (8.7-10.4)
[2024-01-26 06:43] LABS: BASOPHILS % 0.3 % (0.0-2.0); HEMOGLOBIN. 13.8 g/dL (14.0-18.0); LYMPHOCYTES % 15.4 % (20.0-50.0); MEAN CORPUSCULAR HEMOGLOBIN 29.6 pg (28.0-32.0); MEAN CORPUSCULAR HGB CONC 32.8 g/dL (31.0-37.0); MEAN CORPUSCULAR VOLUME 90.3 fL (80.0-94.0); MEAN PLATELET VOLUME 9.2 fl (7.4-10.4); MONOCYTES % 6.4 % (2.0-8.0); NEUTROPHILS % 73.9 % (40.0-76.0); PLATELET 178 x1000/uL (130-400); RED BLOOD CELL COUNT 4.65 mill/uL (4.7-6.1); RED CELL DISTRIBUTION WIDTH 15.6 % (11.6-14.6); WHITE BLOOD COUNT 8.5 x1000/uL (4.5-11.0)
[2024-01-26 06:46] LABS: CREATININE 0.6 mg/dL (0.6-1.3); GLUCOSE 84 mg/dL (70-105)
[2024-01-26 06:47] LABS: UREA NITROGEN BLOOD 9 mg/dL (9-23)
[2024-01-26 06:48] LABS: ALANINE AMINOTRANSFERASE 140 IU/L (10-49); ALBUMIN 2.8 g/dL (3.2-4.8); ASPARTATE AMINOTRANSFERASE 77 IU/L (<34)
[2024-01-26 06:49] LABS: BILIRUBIN TOTAL 0.7 mg/dL (0.1-1.0); PROTEIN TOTAL 5.7 g/dL (6.0-8.3)
[2024-01-26] MEDS: POTASSIUM CHLORIDE 20MEQ/PACKET NG NR (09:56)
[2024-01-26] MEDS: FUROSEMIDE 20MG/2ML VIAL IVP SCH (09:56)
[2024-01-26] MEDS: ALBUMIN HUMAN 25GM/500ML (5%) IV NR (12:14)
[2024-01-26] MEDS ORDERED: MAGNESIUM SULFATE 1GM/2ML VIAL IM ONE (13:45)
[2024-01-26] MEDS: IPRATROPIUM/ALBUTEROL 0.5-3(2.5)MG/3ML NEB HHN SCH (14:36)
[2024-01-26] MEDS: MAGNESIUM 2G PREMIX 50ML IV NR (14:53)
[2024-01-27] VITALS (95 sets, daily range): BP systolic 84–135; BP diastolic 45–93; PULSE 66–106; RESP 15–32; TEMP 36.44736–37.05852; O2SAT 87–100
[2024-01-27 06:30] LABS: CHLORIDE 105 mEq/L (98-107); POTASSIUM 4.8 mEq/L (3.5-5.1); SODIUM 139 mEq/L (136-145)
[2024-01-27 06:31] LABS: CALCIUM 8.1 mg/dL (8.7-10.4); CARBON DIOXIDE 28 mEq/L (21-32)
[2024-01-27 06:36] LABS: CREATININE 0.6 mg/dL (0.6-1.3); GLUCOSE 92 mg/dL (70-105); UREA NITROGEN BLOOD 7 mg/dL (9-23)
[2024-01-27 07:09] LABS: HEMATOCRIT. 39.2 % (42.0-52.0); HEMOGLOBIN. 13.1 g/dL (14.0-18.0); MEAN CORPUSCULAR HEMOGLOBIN 30.5 pg (28.0-32.0); MEAN CORPUSCULAR HGB CONC 33.4 g/dL (31.0-37.0); MEAN CORPUSCULAR VOLUME 91.5 fL (80.0-94.0); RED BLOOD CELL COUNT 4.28 mill/uL (4.7-6.1); RED CELL DISTRIBUTION WIDTH 15.5 % (11.6-14.6)
[2024-01-27 07:17] LABS: DIFFERENTIAL COMMENT 1
[2024-01-27 10:56] LABS: PLATELET 180 x1000/uL (130-400)
[2024-01-27 11:02] LABS: PLATELET ESTIMATE NORMAL
[2024-01-27] MEDS: VANCOMYCIN 2,000 MG in DEXT 5% WATER 500 ML IV NR (17:33)
[2024-01-27] MEDS: THEOPHYLLINE ANHYDROUS 80 MG/15 ML 120ML NG SCH (17:33)
[2024-01-27] MEDS: CEFEPIME 2,000MG in DEXT 5% WATER 100ML IV SCH (17:33)
[2024-01-27] MEDS ORDERED: CEFEPIME 1GM/50ML 50 ML IV SCH (21:00)
[2024-01-28] VITALS (28 sets, daily range): BP systolic 87–118; BP diastolic 48–87; PULSE 67–97; RESP 18–29; TEMP 36.16956–37.44744; O2SAT 93–99
[2024-01-28] MEDS: VANCOMYCIN 1GM/200ML PMX (BAXTER) IV SCH (05:26)
[2024-01-28 06:38] LABS: BASOPHILS % 0.7 % (0.0-2.0); EOSINOPHILS % 3.6 % (0.0-5.0); HEMATOCRIT. 39.2 % (42.0-52.0); HEMOGLOBIN. 12.9 g/dL (14.0-18.0); LYMPHOCYTES % 9.4 % (20.0-50.0); MEAN CORPUSCULAR HEMOGLOBIN 29.8 pg (28.0-32.0); MEAN CORPUSCULAR HGB CONC 32.8 g/dL (31.0-37.0); MEAN CORPUSCULAR VOLUME 90.8 fL (80.0-94.0); MEAN PLATELET VOLUME 9.9 fl (7.4-10.4); MONOCYTES % 5.9 % (2.0-8.0); NEUTROPHILS % 80.4 % (40.0-76.0); PLATELET 168 x1000/uL (130-400); RED BLOOD CELL COUNT 4.32 mill/uL (4.7-6.1); RED CELL DISTRIBUTION WIDTH 15.7 % (11.6-14.6); WHITE BLOOD COUNT 10.6 x1000/uL (4.5-11.0)
[2024-01-28 06:39] LABS: CHLORIDE 105 mEq/L (98-107); POTASSIUM 4.1 mEq/L (3.5-5.1); SODIUM 136 mEq/L (136-145)
[2024-01-28 06:40] LABS: CALCIUM 8.5 mg/dL (8.7-10.4); CARBON DIOXIDE 26 mEq/L (21-32)
[2024-01-28 06:45] LABS: CREATININE 0.6 mg/dL (0.6-1.3); GLUCOSE 97 mg/dL (70-105); UREA NITROGEN BLOOD 9 mg/dL (9-23)
[2024-01-28 06:54] LABS: DIFFERENTIAL COMMENT 1
[2024-01-28 08:52] LABS: BG BASE EXCESS 2.4 mmol/L (-2.0-3.0); BG CARBOXYHEMOGLOBIN 0.5 % (0.5-1.5); BG DEOXYHEMOGLOBIN 1.7 % (0.0-5.0); BG FRACTION INSPIRED OXYGEN 40; BG HCO3 ACT 26.9 mmol/L (21.0-28.0); BG METHEMOGLOBIN 0.3 % (0.5-1.5); BG OXYGEN SATURATION 98.3 % (94.0-98.0); BG OXYHEMOGLOBIN 97.5 % (94.0-98.0); BG PCO2 41.4 mmHg (35.0-48.0); BG PH 7.431 (7.350-7.450); BG SAMPLE SITE RIGHT RADIAL; BG TOTAL HEMOGLOBIN 13.2 g/dL (13.5-17.5); BG VENT MODE COOL AEROSOL
[2024-01-29] VITALS (14 sets, daily range): BP systolic 96–130; BP diastolic 53–90; PULSE 76–110; RESP 17–26; TEMP 36.50292–37.39188; O2SAT 90–98
[2024-01-29 05:27] LABS: BASOPHILS % 0.4 % (0.0-2.0); EOSINOPHILS % 4.1 % (0.0-5.0); HEMOGLOBIN. 14.1 g/dL (14.0-18.0); LYMPHOCYTES % 9.4 % (20.0-50.0); MEAN CORPUSCULAR HGB CONC 32.9 g/dL (31.0-37.0); MEAN CORPUSCULAR VOLUME 91.2 fL (80.0-94.0); MONOCYTES % 8.5 % (2.0-8.0); NEUTROPHILS % 77.6 % (40.0-76.0); PLATELET 188 x1000/uL (130-400); RED BLOOD CELL COUNT 4.71 mill/uL (4.7-6.1); RED CELL DISTRIBUTION WIDTH 16.1 % (11.6-14.6); WHITE BLOOD COUNT 9.1 x1000/uL (4.5-11.0)
[2024-01-29 05:35] LABS: CARBON DIOXIDE 28 mEq/L (21-32); CHLORIDE 104 mEq/L (98-107); POTASSIUM 4.1 mEq/L (3.5-5.1); SODIUM 137 mEq/L (136-145)
[2024-01-29 05:36] LABS: CALCIUM 8.9 mg/dL (8.7-10.4)
[2024-01-29 05:41] LABS: CREATININE 0.5 mg/dL (0.6-1.3); GLUCOSE 90 mg/dL (70-105); UREA NITROGEN BLOOD 8 mg/dL (9-23)
[2024-01-29] MEDS: GUAIFENESIN 200MG/10ML SUGAR FREE UDC PO SCH (18:12)
[2024-01-30] VITALS (16 sets, daily range): BP systolic 95–120; BP diastolic 62–85; PULSE 81–114; RESP 14–29; TEMP 36.33624–37.39188; O2SAT 91–100
[2024-01-30] MEDS: FAMOTIDINE 20MG/2ML VIAL IV SCH (08:46)
[2024-01-31] VITALS (16 sets, daily range): BP systolic 105–122; BP diastolic 64–89; PULSE 74–117; RESP 15–31; TEMP 36.44736–38.44752; O2SAT 94–99
[2024-01-31 06:23] LABS: CHLORIDE 104 mEq/L (98-107); POTASSIUM 4.4 mEq/L (3.5-5.1); SODIUM 136 mEq/L (136-145)
[2024-01-31 06:24] LABS: CARBON DIOXIDE 27 mEq/L (21-32)
[2024-01-31 06:29] LABS: CREATININE 0.7 mg/dL (0.6-1.3); GLUCOSE 122 mg/dL (70-105)
[2024-01-31 06:30] LABS: UREA NITROGEN BLOOD 11 mg/dL (9-23)
[2024-01-31 07:16] LABS: HEMOGLOBIN. 13.4 g/dL (14.0-18.0); MEAN CORPUSCULAR HEMOGLOBIN 30.3 pg (28.0-32.0); MEAN CORPUSCULAR HGB CONC 33.4 g/dL (31.0-37.0); MEAN CORPUSCULAR VOLUME 90.6 fL (80.0-94.0); MEAN PLATELET VOLUME 9.6 fl (7.4-10.4); PLATELET 205 x1000/uL (130-400); RED BLOOD CELL COUNT 4.41 mill/uL (4.7-6.1); RED CELL DISTRIBUTION WIDTH 15.9 % (11.6-14.6); WHITE BLOOD COUNT 7.7 x1000/uL (4.5-11.0)
[2024-01-31 07:40] LABS: DIFFERENTIAL COMMENT 1
[2024-01-31 15:47] LABS: ANISOCYTOSIS 1+; GIANT PLATELETS 1+; PLATELET ESTIMATE NORMAL
[2024-02-01] VITALS (14 sets, daily range): BP systolic 105–136; BP diastolic 68–85; PULSE 68–88; RESP 18–27; TEMP 36.05844–37.55856; O2SAT 92–97
[2024-02-01] MEDS: DEXT 5%/0.45% NACL 1000ML 1,000 ML IV SCH (12:13)
[2024-02-02] VITALS (11 sets, daily range): BP systolic 62–137; BP diastolic 37–102; PULSE 74–94; RESP 17–32; TEMP 36.16956–37.61412; O2SAT 93–97
== END 2024-02-02 08:35 | DRG 870 ==
LOC: ER 21:49 → CVICU 01-16 00:51 → EDBEDREQSVC 01-16 01:05 → EDBEDREQTM 01-16 01:05 → EDBEDREQ 01-16 01:05 → 5EST 01-28 03:09
PROVIDERS: ADMIT Internal Medicine; ATTEND Internal Medicine
PROC: 5A1955Z Respiratory Ventilation, Greater than 96 Consecutive Hours (ICD-10-PCS; principal; 2024-01-16)
PROC: 0BH17EZ Insertion of Endotracheal Airway into Trachea, Via Natural or Artificial Opening (ICD-10-PCS; 2024-01-16)
PROC: 02HV33Z Insertion of Infusion Device into Superior Vena Cava, Percutaneous Approach (ICD-10-PCS; 2024-01-16)
PROC: B548ZZA Ultrasonography of Superior Vena Cava, Guidance (ICD-10-PCS; 2024-01-16)
PROC: 4A00X4Z Measurement of Central Nervous Electrical Activity, External Approach (ICD-10-PCS; 2024-01-24)
DX: A41.9 Sepsis, unspecified organism (principal); G93.41 Metabolic encephalopathy; R65.21 Severe sepsis with septic shock; J13 Pneumonia due to Streptococcus pneumoniae; I50.33 Acute on chronic diastolic (congestive) heart failure; J11.08 Influenza due to unidentified influenza virus with specified pneumonia; J80 Acute respiratory distress syndrome; J44.0 Chronic obstructive pulmonary disease with (acute) lower respiratory infection; J44.1 Chronic obstructive pulmonary disease with (acute) exacerbation; N17.9 Acute kidney failure, unspecified; E87.20 Acidosis, unspecified; I47.19 Other supraventricular tachycardia; J98.11 Atelectasis; Z99.11 Dependence on respirator [ventilator] status; E78.00 Pure hypercholesterolemia, unspecified; G40.909 Epilepsy, unspecified, not intractable, without status epilepticus; Z20.822 Contact with and (suspected) exposure to COVID-19; N18.9 Chronic kidney disease, unspecified; I73.9 Peripheral vascular disease, unspecified; D69.6 Thrombocytopenia, unspecified; R00.1 Bradycardia, unspecified; I48.0 Paroxysmal atrial fibrillation; F20.9 Schizophrenia, unspecified; K21.9 Gastro-esophageal reflux disease without esophagitis; E66.9 Obesity, unspecified; F41.9 Anxiety disorder, unspecified; E87.5 Hyperkalemia; E83.42 Hypomagnesemia; Z90.49 Acquired absence of other specified parts of digestive tract; Z86.73 Personal history of transient ischemic attack (TIA), and cerebral infarction without residual deficits; Z78.1 Physical restraint status; Z79.01 Long term (current) use of anticoagulants; Z87.01 Personal history of pneumonia (recurrent)
CPT/HCPCS: 31500; 36415; 36600; 71045; 71275; 74018; 76604; 80048; 80051; 80053; 80076; 80202; 81003; 82375; 82550; 82805; 82962; 83036; 83605; 83735; 83880; 84100; 84132; 84145; 84443; 84478; 84484; 85025; 85027; 87070; 87077; 87186; 87804; 92610; 93005; 93306; 94003; 94070; 94640; 94664; 94667; 95816; 97161; 99291; A6261; J0456; J0692; J1265; J1650; J1720; J1815; J1940; J1953; J2250; J2470; J2543; J2704; J3010; J3370; J3475; J3480; J3490; J7050; J7060; J7608; P9041; Q9967